=== PATIENT | male | born 1940 | race Caucasian/White ===

== ENCOUNTER 2020-08-04 07:23 | Emergency (ER) | payer OTHER, BC ==
[~2020-08-04] VITALS: Ht 170.2 cm; Wt 73.9 kg
[2020-08-04] MEDS ORDERED: WARF1TAB2 PO ×4 (07:42→08:05)
--- NOTE | 2020-08-04 07:46 | NUR ---
PT IS IN ROOM #1A. DR MASTERS EVALUATED THE PT.
[2020-08-04] MEDS ORDERED: MECLIZINE HCL 25 MG TABLET PO ONE (08:00)
[2020-08-04] MEDS ORDERED: PANT40TA49 PO (08:05)
[2020-08-04] MEDS ORDERED: SUCR1TAB PO (08:05)
[2020-08-04] MEDS ORDERED: AMIO200T5 PO (08:05)
[2020-08-04] MEDS ORDERED: ATOR20TA PO (08:05)
[2020-08-04] MEDS ORDERED: LISI10TA29 PO (08:05)
[2020-08-04] MEDS ORDERED: PYRI60TA PO ×2 (08:05)
[2020-08-04] MEDS ORDERED: FENO160T PO (08:05)
[2020-08-04] MEDS ORDERED: ATEN25TA PO (08:05)
[2020-08-04 08:11] LABS: BASOPHILS # (AUTO) 0.1 K/uL (0.0-8.0); BASOPHILS % (AUTO) 0.9 % (0.0-2.0); EOSINOPHILS # (AUTO) 0.3 K/uL (0.0-0.7); EOSINOPHILS % (AUTO) 4.9 % (0.0-7.0); HEMATOCRIT 38.9 % (36.7-47.1); HEMOGLOBIN 12.9 g/dL (12.5-16.3); LYMPHOCYTES # (AUTO) 0.8 K/uL (20.0-40.0); LYMPHOCYTES % (AUTO) 12.5 % (20.5-51.5); MEAN CORPUSCULAR HEMOGLOBIN 31.3 uug (23.8-33.4); MEAN CORPUSCULAR HGB CONC 33 g/dL (32.5-36.3); MEAN CORPUSCULAR VOLUME 94.8 fL (73.0-96.2); MONOCYTES # (AUTO) 0.4 K/uL (2.0-10.0); MONOCYTES % (AUTO) 7.2 % (0.0-11.0); NEUTROPHILS # (AUTO) 4.6 K/uL (1.8-8.9); NEUTROPHILS % (AUTO) 74.5 % (38.5-71.5); PLATELET COUNT (AUTO) 297 K/uL (152-348); RED BLOOD CELL COUNT(AUTO) 4.11 MIL/uL (4.06-5.63); WHITE BLOOD COUNT (AUTO) 6.2 K/uL (3.6-10.2)
[2020-08-04] MEDS ORDERED: LISINOPRIL 10 MG TABLET ONE (08:14)
[2020-08-04] MEDS ORDERED: LISINOPRIL 10 MG TABLET PO ONE (08:15)
[2020-08-04] MEDS ORDERED: MECLIZINE HCL 25 MG TABLET ONE (08:15)
[2020-08-04] MEDS ORDERED: ONDANSETRON 4 MG/2 ML VIAL IV ONE (08:15)
[2020-08-04 08:19] LABS: CREATININE 1.2 mg/dL (0.6-1.3); POTASSIUM 4.1 mmol/L (3.5-5.1)
[2020-08-04 08:25] LABS: BILIRUBIN,DIRECT 0.2 mg/dL (0.0-0.2); BILIRUBIN,TOTAL 0.5 mg/dL (0.2-1.0); TOTAL PROTEIN, SERUM 6.9 g/dL (6.4-8.2)
[2020-08-04] MEDS ORDERED: ONDANSETRON 4 MG/2 ML VIAL ONE (08:44)
[2020-08-04 08:54] LABS: *BILIRUBIN,URIN NEGATIVE (NEGATIVE); *BLOOD, URINE TRACE (NEGATIVE); *CLARITY,URINE CLEAR (CLEAR); *COLOR,URINE YELLOW (YELLOW); *KETONES,URINE NEGATIVE (NEGATIVE); *UROBILINOGEN,URINE 0.2 E.U./dl (NORMAL); LEUKOCYTE ESTERASE ,URINE NEGATIVE (NEGATIVE); NITRITE, URINE NEGATIVE (NEGATIVE); UGLUCOSE NEGATIVE (NEGATIVE)
[2020-08-04] MEDS ORDERED: MORPHINE SULFATE 4 MG/1 ML DISP.SYRIN IV ONE (09:00)
[2020-08-04] MEDS ORDERED: ATENOLOL 25 MG TABLET PO ONE (09:15)
[2020-08-04] MEDS ORDERED: ATENOLOL 25 MG TABLET ONE (09:22)
[2020-08-04] MEDS ORDERED: CLONIDINE HCL 0.1 MG TABLET PO ONE (11:00)
[2020-08-04 11:03] VITALS: BP 165/94
[2020-08-04] MEDS ORDERED: CLONIDINE HCL 0.1 MG TABLET ONE (11:07)
--- NOTE | 2020-08-04 14:13 | NUR ---
Pt was transfered to [facility] via [facility]. roberto LARA is Dr Swift. report was given to JOANN Higginbotham from [facility]. No s/s of distress at the time of transfer.
[2020-08-04 15:11] LABS: BACTERIA,URINE FEW /HPF (NONE SEEN); RBC,URINE 0-3 /HPF (0-3); SQUAMOUS EPITHELIAL CELL,UR FEW /HPF (NONE SEEN); WBC,URINE 0-3 /HPF (0-3)
== END 2020-08-04 14:21 | disposition short-term general hospital (02) ==
LOC: ER 07:23
DX: R42 Dizziness and giddiness (principal); R53.1 Weakness; I44.0 Atrioventricular block, first degree; M51.44 Schmorl's nodes, thoracic region; M81.0 Age-related osteoporosis without current pathological fracture; M48.04 Spinal stenosis, thoracic region; M51.36 Other intervertebral disc degeneration, lumbar region; M25.78 Osteophyte, vertebrae; M48.061 Spinal stenosis, lumbar region without neurogenic claudication; J98.11 Atelectasis; M48.02 Spinal stenosis, cervical region; Z98.1 Arthrodesis status; Z20.822 Contact with and (suspected) exposure to COVID-19; Z79.01 Long term (current) use of anticoagulants; Z79.899 Other long term (current) drug therapy; Z95.2 Presence of prosthetic heart valve; G70.00 Myasthenia gravis without (acute) exacerbation; I10 Essential (primary) hypertension; Z91.81 History of falling; R73.03 Prediabetes; C61 Malignant neoplasm of prostate
CPT/HCPCS: 36415; 70450; 71045; 72125; 72128; 72131; 80048; 80076; 81001; 82962; 84484; 85025; 85730; 87426; 93005; 96374; 99291; J2405; 70030-TC; A4663; J7030; J8597